=== PATIENT | male | born 1985 | race Caucasian/White ===

== ENCOUNTER 2017-01-11 10:17 | Emergency (ER) | payer MEDICARE, MEDICAID ==
--- NOTE | 2017-01-11 11:03 | UC ---
Complaint Male HPI - HPI Summary HPI Summary: 3 DAYS OF PROGRESSIVELY WORSENING LEFT TESTICULAR PAIN AND SWELLING. STATES HE FEELS AN EXTRA SWELLING IN THE LEFT SIDE OF HIS SCROTUM. HAS SOME PAIN WITH DEFECATION AND MILD DISCOMFORT WHEN URINATING. IS IN A MONOGAMOUS RELATIONSHIP. IS NOT CONCERNED ABOUT STD. PAIN RADIATES TO HIS LEFT LOWER ABDOMEN AND LOW BACK. NO FEVER. NO PENILE DISCHARGE. - History of Current Complaint Chief Complaint: UCGeneralIllness Stated Complaint: TESTICULAR PAIN Time Seen by Provider: 01/11/17 10:43 Hx Obtained From: Patient, Family/News Library Director - Onset/Duration: Gradual Onset, Lasting Days, Still Present Timing: Constant Severity Initially: Moderate Severity Currently: Moderate Pain Intensity: 7 Pain Scale Used: 0-10 Numeric Location: Testicle - LEFT Character: Sharp Aggravating Factor(s): Straining Alleviating Factor(s): Nothing Associated Signs And Symptoms: Positive: Back Pain. Negative: Fever, Hematuria , Dysuria, Constipation, Blood in Stool, Rectal Pain, Appetite, Nausea, Vomiting (# Of Episodes =), Penile Swelling, Penile Discharge - Allergies/Home Medications Allergies/Adverse Reactions: Allergies Allergy/AdvReac Type Severity Reaction Status Date / Time No Known Allergies Allergy Verified 01/11/17 10:28 Home Medications: Home Medications NK [No Home Medications Reported] 01/11/17 [History Confirmed 01/11/17] PMH/Surg Hx/FS Hx/Imm Hx Previously Healthy: Yes - Surgical History Surgical History: Yes Surgery Procedure, Year, and Place: appy - Family History Known Family History: Negative: Hypertension - Social History Alcohol Use: Occasionally Substance Use Type: Marijuana Substance Use Comment - Amount & Last Used: weekly Smoking Status (MU): Heavy Every Day Tobacco Smoker Amount Used/How Often: 1 PPD Household Exposure Type: Cigarettes Review of Systems Constitutional: Negative Respiratory: Negative Cardiovascular: Negative Gastrointestinal: Negative Genitourinary: Other - LEFT TESTICULAR PAIN, SWELLING Neurological: Headache All Other Systems Reviewed And Are Negative: Yes Physical Exam Triage Information Reviewed: Yes Appearance: Well-Appearing, No Pain Distress, Well-Nourished Vital Signs: Initial Vital Signs Temp 97.4 F 01/11/17 10:29 Pulse 61 01/11/17 10:29 Resp 18 01/11/17 10:29 BP 121/69 01/11/17 10:29 Pulse Ox 100 01/11/17 10:29 Vital Signs Reviewed: Yes Eyes: Positive: Conjunctiva Clear ENT: Positive: Hearing grossly normal Neck: Positive: Supple Respiratory: Positive: No respiratory distress, No accessory muscle use Cardiovascular: Positive: Pulses Normal Abdomen Description: Positive: Nontender, Soft Musculoskeletal: Positive: No Edema Neurological: Positive: Alert Psychological: Positive: Age Appropriate Behavior Skin: Negative: rashes UC Physical Exam Vital Signs On Initial Exam: Initial Vitals Temp Pulse Resp BP Pulse Ox 97.4 F 61 18 121/69 100 01/11/17 10:29 01/11/17 10:29 01/11/17 10:29 01/11/17 10:29 01/11/17 10:29 - Genitalia Exam Male Genitalia: Circumcised Male Genitalia Cont.: Left: Testicles Tender - LEFT TESTICLE SWOLLEN, TENDER. PALPABLE TENDER SWELLING POSTERIOR TO LEFT TESTIS. NO HERNIA PALPATED, Testicles With Swelling, Right: Testicles Descended Diagnostics - Radiology TESTICULAR US Xray Interpretation: Positive (See Comments) - 1. No evidence for presence of an intratesticular lesion, testicular torsion, or epididymoorchitis. 2. Paratesticular 2.9 x 1.5 x 2.1 cm sharply circumscribed thin-walled simple appearing cyst in the LEFT hemiscrotum without clear origin from the epididymis. This may represent a scrotal tunica vaginalis or albuginea cyst. Urologic referral suggested. Radiology Interpretation Completed By: Radiologist Complaint Male Course/Dx - Differential Dx/Diagnosis Provider Diagnoses: CYST LEFT HEMISCROTUM - Physician Notifications Discussed Patient Care With: Sea Hsu - ADVISED TO SEND DIRECTLY TO OFFICE Time Discussed With Above Provider: 12:15 Instructed by Provider To: Send To Office Now Discharge - Discharge Plan Condition: Stable Disposition: HOME Patient Education Materials: Testicle Pain (ED) Referrals: Sea Hsu MD [Medical Doctor] - (GO DIRECTLY TO THE UROLOGY OFFICE FROM HERE FOR FURTHER EVALUATION) Additional Instructions: YOU HAVE A CYST IN THE LEFT SCROTUM SEEN ON ULTRASOUND TODAY. GO DIRECTLY TO DR. HSU'S OFFICE (UROLOGY) FOR FURTHER EVALUATION. THEY ARE EXPECTING YOU. YOUR URINE DIP WAS UNREMARKABLE TODAY. URINE SENT FOR TESTING FOR GONORRHEA AND CHLAMYDIA.
--- NOTE | 2017-01-11 11:53 | RAD ---
Indication: LEFT scrotal pain, redness, and swelling since January 08. Comparison: No relevant prior exams available on the [facility] PACS for comparison. Technique: Scrotal ultrasound. Report: 5.1 x 2.4 x 3.3 cm normal echotexture RIGHT testicle with normal range vascularity. Unremarkable 1.2 x 1.2 cm RIGHT epididymis head with normal range vascularity. Physiologic trace RIGHT scrotal fluid. Negative for varicocele. 5.3 x 2.7 x 3.8 cm normal echotexture LEFT testicle is traced normal vascularity symmetric with the RIGHT testicle. Unremarkable 0.9 x 1.5 cm LEFT epididymis head with normal range vascularity. Extratesticular 2.9 x 1.5 x 2.1 cm sharply circumscribed thin-walled simple appearing cyst in the LEFT hemiscrotum without clear origin from the epididymis. Physiologic trace LEFT scrotal fluid. Negative for varicocele. IMPRESSION: 1. No evidence for presence of an intratesticular lesion, testicular torsion, or epididymoorchitis. 2. Paratesticular 2.9 x 1.5 x 2.1 cm sharply circumscribed thin-walled simple appearing cyst in the LEFT hemiscrotum without clear origin from the epididymis. This may represent a scrotal tunica vaginalis or albuginea cyst. Urologic referral suggested.
[2017-01-11] MEDS ORDERED: Ibuprofen TAB* 600 MG PO ONE (12:18)
[2017-01-11 12:28] VITALS: BP 141/82
== END 2017-01-11 12:26 | disposition home or self-care (01) ==
LOC: UCEAST 10:17
DX: N50.89 Other specified disorders of the male genital organs (principal); N50.812 Left testicular pain; F12.90 Cannabis use, unspecified, uncomplicated; F17.210 Nicotine dependence, cigarettes, uncomplicated
CPT/HCPCS: 76870; 81003; 87491; 87591; 99212; A9270-GY; G0463

== ENCOUNTER 2017-06-04 19:38 | Emergency (ER) | payer MEDICARE, MEDICAID ==
[2017-06-04] MEDS ORDERED: Ibuprofen TAB* 400 MG PO ONE (21:02)
[2017-06-04] MEDS ORDERED: Ibuprofen TAB* 400 MG ONE (21:09)
--- NOTE | 2017-06-05 00:19 | ED ---
Skin Complaint - HPI Summary HPI Summary: [id number] patient here with left thumb laceration while washing dishes tonight. He cut his hand on a drinking glass all trying to wash it. Bleeding was eventually controlled with pressure however he reports it looks with a deep wound. Does not feel any remnants may be left in the wound that was occluded as it was a clean break of the glass and he has no pain within the finger. Sensation and movement are intact although he does report pain with moving his left thumb. Immunizations are up-to-date. - History of Current Complaint Chief Complaint: EDExtremityUpper Time Seen by Provider: 06/04/17 19:53 Stated Complaint: LEFT HAND LAC Hx Obtained From: Patient Pain Intensity: 7 - Allergy/Home Medications Allergies/Adverse Reactions: Allergies Allergy/AdvReac Type Severity Reaction Status Date / Time No Known Allergies Allergy Verified 06/04/17 19:40 PMH/Surg Hx/FS Hx/Imm Hx Previously Healthy: Yes Endocrine/Hematology History: Denies: Hx Anticoagulant Therapy, Hx Blood Disorders, Hx Unexplained Bleeding Sensory History: Denies: Hx Contacts or Glasses Opthamlomology History: Denies: Hx Contacts or Glasses - Surgical History Surgery Procedure, Year, and Place: appy - Immunization History Immunizations Up to Date: Yes Infectious Disease History: No Infectious Disease History: Denies: Hx of Known/Suspected MRSA, History Other Infectious Disease, Traveled Outside the [place] in Last 30 Days - Family History Known Family History: Negative: Hypertension - Social History 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 Negative: Arthralgia, Decreased ROM, Edema Skin: Other - lac Neurological: Negative Psychological: Normal All Other Systems Reviewed And Are Negative: Yes Physical Exam Triage Information Reviewed: Yes Vital Signs On Initial Exam: Initial Vitals Temp Pulse Resp BP Pulse Ox 97.1 F 66 16 139/88 99 06/04/17 19:40 06/04/17 19:40 06/04/17 19:40 06/04/17 19:40 06/04/17 19:40 Vital Signs Reviewed: Yes Appearance: Positive: Well-Appearing, No Pain Distress, Well-Nourished Skin: Positive: Warm, Skin Color Reflects Adequate Perfusion - linear laceration over lateral aspect of Lt thumb - bleeding intermittently w/o pressure Head/Face: Positive: Normal Head/Face Inspection Eyes: Positive: Normal, EOMI ENT: Positive: Hearing grossly normal Respiratory/Lung Sounds: Positive: Breath Sounds Present Cardiovascular: Positive: Pulses are Symmetrical in both Upper and Lower Extremities Musculoskeletal: Positive: Normal, Strength/ROM Intact - FROM thumb active and resisted; strength 5/5 in all directions Neurological: Positive: Normal, Sensory/Motor Intact, Alert, Oriented to Person Place, Time, CN Intact II-III Psychiatric: Positive: Normal Procedures - Laceration/Wound Repair 1 Location: upper extremity - Lt thumb Description: Linear Anesthesia: Local, 1.0%, Lido Length, Depth and Shape: 2.5cm x 4mm - tendon observed and intact - no vessels, nerves observed Betadine Prep?: Yes Irrigated w/ Saline (ccs): 250 - hibaclens and water solution Laceration/Wound Explored: clean Closure: Single Layer Suture Type: Nylon - 5-0 Number of Sutures: 8 Layer Closure?: No Sterile Dressing Applied?: No - triple anbx ointment + sterile gauze + TIM wrap - hemodynamically stable Diagnostics - Vital Signs Vital Signs Temp Pulse Resp BP Pulse Ox 06/04/17 19:40 97.1 F 66 16 139/88 99 - Laboratory Lab Statement: Any lab studies that have been ordered have been reviewed, and results considered in the medical decision making process. Course/Dx - Diagnoses Provider Diagnoses: Laceration of left thumb Discharge - Discharge Plan Condition: Stable Disposition: HOME Patient Education Materials: Finger Laceration (ED), Care For Your Stitches (ED ) Additional Instructions: Keep dressing clean, dry and in place for 48 hours. After this time, you may remove dressing and gently wash the wound with soap and water, pat dry with clean cloth, and reapply triple antibiotic ointment plus clean gauze dressing. Brace thumb so you cannot bend it in an effort to reduce risk of tearing sutures loose. Follow-up with PCP or return to ED in 10-14 days for wound check and suture removal. For pain/swelling, you may rest, ice, elevate and take ibuprofen with food. *If you develop redness, swelling, streaking, purulent drainage, fever, chills, return to the ED.
[2017-06-05 00:41] VITALS: BP 131/72
== END 2017-06-05 00:39 | disposition home or self-care (01) ==
LOC: ED 19:38
DX: S61.012A Laceration without foreign body of left thumb without damage to nail, initial encounter (principal); W25.XXXA Contact with sharp glass, initial encounter; Y93.G1 Activity, food preparation and clean up; Y92.9 Unspecified place or not applicable; F17.210 Nicotine dependence, cigarettes, uncomplicated
CPT/HCPCS: 12001; 99281; A9270-GY

== ENCOUNTER 2018-01-31 12:21 | Emergency (ER) | payer MEDICARE, MEDICAID ==
[2018-01-31] MEDS ORDERED: Nicotine Inhaler* 10 MG AMP INH PRN (17:48)
[2018-01-31] MEDS ORDERED: chlordiazePOXIDE CAP* 25 MG PO ONE (17:48)
[2018-01-31 18:03] LABS: ABS Basophils 0.1 10^3/ul (0-0.2); ABS Eosinophils 0.3 10^3/ul (0-0.6); ABS Lymphocytes 2.8 10^3/ul (1.0-4.8); ABS Monocytes 0.8 10^3/ul (0-0.8); ABS Nucleated RBC 0 10^3/ul; Eosinophil % 2.8 % (0-6); Hematocrit 46 % (42-52); Hemoglobin 15.9 g/dl (14.0-18.0); Lymphocyte % 25.4 % (25-47); Mean Corpuscular HGB Conc 34 g/dl (31-36); Mean Corpuscular Hemoglobin 30 pg (27-31); Mean Corpuscular Volume 88 fL (80-94); Mean Platelet Volume 7.8 fL (7.4-10.4); Nucleated Red Blood Cells % 0.1; Platelet Count 226 10^3/ul (150-450); Red Blood Count 5.28 10^6/ul (4.00-5.40); Red Cell Distribution Width 16 % (10.5-15)
[2018-01-31] MEDS ORDERED: Nicotine GUM* 2 MG PO PRN (18:08)
[2018-01-31 18:20] LABS: EGFR Non-African American 110.3 (>60)
--- NOTE | 2018-01-31 18:52 | ED ---
Substance Abuse/Use - HPI Summary HPI Summary: Patient is a 32 y/o M presenting to ED for alcohol detox assistance. Patient states he has been drinking. He states that his last alcoholic drink was yesterday, patient states that he was experiencing "shakes and sweats" and he is hoping to get medication to help with the withdrawal. He denies any other drug usage except for occasional marijuana. He also requests MHE, denies SI, HI. Patient reports FMHx of schizophrenia, bipolar disorder, depression. On triage, pain is denied, nothing is noted to aggravate/alleviate Sx. Home medications and allergies are reviewed. - History Of Current Complaint Chief Complaint: EDDetoxRequest Stated Complaint: MHE/DETOX Time Seen by Provider: 01/31/18 17:21 Hx Obtained From: Patient Ingestion History: Type/Name Of Drug - alcohol Overdose Characteristics: Oral Timing Of Abuse: Daily Severity Currently: None - pain denied Aggravating Factor(s): Nothing Alleviating Factor(s): Nothing Associated Signs And Symptoms: Other: - sweats, shakes Related Hx: Drug/Alcohol Last Used @ - yesterday - Allergies/Home Medications Allergies/Adverse Reactions: Allergies Allergy/AdvReac Type Severity Reaction Status Date / Time No Known Allergies Allergy Verified 01/31/18 12:38 Home Medications: Home Medications Albuterol HFA INHALER* [Ventolin HFA Inhaler*] 2 puff INH QID PRN 01/31/18 [ History Confirmed 01/31/18] Sertraline* [Zoloft*] 150 mg PO DAILY 01/31/18 [History Confirmed 01/31/18] buPROPion SR TAB* [Wellbutrin SR TAB*] 100 mg PO DAILY 01/31/18 [History Confirmed 01/31/18] PMH/Surg Hx/FS Hx/Imm Hx Endocrine/Hematology History: Denies: Hx Anticoagulant Therapy, Hx Blood Disorders, Hx Unexplained Bleeding Sensory History: Denies: Hx Contacts or Glasses Opthamlomology History: Denies: Hx Contacts or Glasses - Surgical History Surgery Procedure, Year, and Place: appy Infectious Disease History: No Infectious Disease History: Denies: Hx of Known/Suspected MRSA, History Other Infectious Disease, Traveled Outside the [place] in Last 30 Days - Family History Known Family History: Positive: Other - bipolar disorder, schizophrenia, depression Negative: Hypertension - Social History Alcohol Use: Daily Alcohol Amount: 15-20beers/day Substance Use Type: Reports: Marijuana Substance Use Comment - Amount & Last Used: weekly Hx Tobacco Use: Yes Smoking Status (MU): Heavy Every Day Tobacco Smoker Amount Used/How Often: 1 PPD - rolls his own Review of Systems Positive: Skin Diaphoresis, Other - shaking Positive: Other - alcoholism, no SI, no HI All Other Systems Reviewed And Are Negative: Yes Physical Exam - Summary Physical Exam Summary: GENERAL: Patient is a well-developed and nourished male who is lying comfortable in the stretcher. Patient is not in any acute respiratory distress. HEAD AND FACE: Normocephalic EYES: PERRLA, EOMI x 2. EARS: Hearing grossly intact. MOUTH: Oropharynx within normal limits. NECK: Supple, trachea is midline, no adenopathy, no JVD, no carotid bruit. CHEST: Symmetric, no tenderness at palpation LUNGS: Clear to auscultation bilaterally. No wheezing or crackles. CVS: Regular rate and rhythm, S1 and S2 present, no murmurs or gallops appreciated. ABDOMEN: Soft, non-tender. Bowel sounds are normal. No abdominal abnormal pulsations. EXTREMITIES: Full ROM in all major joints, no edema, no cyanosis or clubbing. NEURO: Alert and oriented x 3. No acute neurological deficits. Speech is normal and follows commands. SKIN: Dry and warm Triage Information Reviewed: Yes Vital Signs On Initial Exam: Initial Vitals Temp Pulse Resp BP Pulse Ox 98.1 F 75 18 145/89 98 01/31/18 12:34 01/31/18 12:34 01/31/18 12:34 01/31/18 12:34 01/31/18 12:34 Vital Signs Reviewed: Yes Diagnostics - Vital Signs Vital Signs Temp Pulse Resp BP Pulse Ox 01/31/18 18:21 18 01/31/18 14:15 98.4 F 78 14 151/82 100 01/31/18 12:34 98.1 F 75 18 145/89 98 - Laboratory Lab Results: Lab Results 01/31/18 01/31/18 Range/Units 17:53 17:53 WBC 11.0 H (3.5-10.8) 10^3/ul RBC 5.28 (4.00-5.40) 10^6/ul Hgb 15.9 (14.0-18.0) g/dl Hct 46 (42-52) % MCV 88 (80-94) fL MCH 30 (27-31) pg MCHC 34 (31-36) g/dl RDW 16 H (10.5-15) % Plt Count 226 (150-450) 10^3/ul MPV 7.8 (7.4-10.4) fL Neut % (Auto) 63.9 (38-83) % Lymph % (Auto) 25.4 (25-47) % [place] % (Auto) 7.2 H (0-7) % Eos % (Auto) 2.8 (0-6) % Baso % (Auto) 0.7 (0-2) % Absolute Neuts (auto) 7.0 (1.5-7.7) 10^3/ul Absolute Lymphs (auto) 2.8 (1.0-4.8) 10^3/ul Absolute Monos (auto) 0.8 (0-0.8) 10^3/ul Absolute Eos (auto) 0.3 (0-0.6) 10^3/ul Absolute Basos (auto) 0.1 (0-0.2) 10^3/ul Absolute Nucleated RBC 0 10^3/ul Nucleated RBC % 0.1 Sodium 139 (135-145) mmol/L Potassium 4.2 (3.5-5.0) mmol/L Chloride 104 (101-111) mmol/L Carbon Dioxide 26 (22-32) mmol/L Anion Gap 9 (2-11) mmol/L BUN 13 (6-24) mg/dL Creatinine 0.82 (0.67-1.17) mg/dL Est GFR ( Amer) 133.5 (>60) Est GFR (Non-Af Amer) 110.3 (>60) BUN/Creatinine Ratio 15.9 (8-20) Glucose 101 H (70-100) mg/dL Calcium 9.8 (8.6-10.3) mg/dL Total Bilirubin 0.50 (0.2-1.0) mg/dL AST 19 (13-39) U/L ALT 16 (7-52) U/L Alkaline Phosphatase 79 (34-104) U/L Total Protein 7.5 (6.4-8.9) g/dL Albumin 4.6 (3.2-5.2) g/dL Globulin 2.9 (2-4) g/dL Albumin/Globulin Ratio 1.6 (1-3) TSH Pending Salicylates Pending Acetaminophen Pending Serum Alcohol Pending Result Diagrams: 01/31/18 17:53 01/31/18 17:53 Lab Statement: Any lab studies that have been ordered have been reviewed, and results considered in the medical decision making process. Re-Evaluation - Re-Evaluation First Eval Re-Evaluation Time: 18:10 Comment: Patient was medically cleared for MHE. Course/Dx - Course Course Of Treatment: Patient is a 32 y/o M presenting to ED for alcohol detox assistance. He states that his last alcoholic drink was yesterday, patient states that he was experiencing "shakes and sweats" and he is hoping to get medication to help with the withdrawal. He denies any other drug usage except for occasional marijuana. He also requests MHE, denies SI, HI. Physical exam is unremarkable. Labs showed glucose 101, WBC 11. During ED course, patient received Librium cap 25 mg, nicotine gum 2 mg, and nicotine inhaler. Patient was medically cleared for MHE. Patient is signed out to Dr. Luis at shift change pending disposition of patient. Dx of alcohol abuse. - Diagnoses Provider Diagnoses: Alcohol abuse Discharge - Sign-Out/Discharge Documenting (check all that apply): Sign-Out Patient Signing out patient TO: Vivian Luis Receiving patient FROM: Torito Clemons - Discharge Plan Referrals: Jeff Canales MD [Primary Care Provider] - - Attestation Statements Document Initiated by Scribe: Yes Documenting Scribe: Gomez Parsons Provider For Whom Scribe is Documenting (Include Credential): Torito Clemons MD Scribe Attestation: Gomez Au , scribed for Torito Clemons MD on 01/31/18 at 1908.
[2018-01-31 19:11] LABS: Urine Appearance Turbid; Urine Blood Negative (Negative); Urine Color Yellow; Urine Ketones Negative (Negative); Urine Protein Negative (Negative); Urine Specific Gravity 1.013 (1.010-1.030); Urine Urobilinogen Negative (Negative)
--- NOTE | 2018-01-31 19:43 | ED ---
Progress - Progress Note Progress Note: Patient was signed out from Dr. Clemons upon shift change pending MHE and disposition. Per TARA and Dr. Mcclain, patient presented to [facility] with a request for detox from ETOH. Per MHShelly, patient was making suicidal statements; however, he is not currently presenting as suicidal. Dr. Mcclain recommends patient be discharged with follow up from the crisis center for detox. - Consult/PCP Time Called: 18:00 Re-Evaluation - Re-Evaluation First Eval Re-Evaluation Time: 18:10 Comment: Patient was medically cleared for MHE. Course/Dx - Course Course Of Treatment: Patient was signed out from Dr. Clemons upon shift change pending MHE and disposition. Per TARA and Dr. Mcclain, patient presented to [facility] with a request for detox from ETOH. Per MHE, patient was making suicidal statements; however, he is not currently presenting as suicidal. Dr. Mcclain recommends patient be discharged with follow up from the crisis center for detox. Patient is agreeable with this plan. - Diagnoses Provider Diagnoses: Alcohol abuse Discharge - Sign-Out/Discharge Documenting (check all that apply): Patient Departure - Discharge home, Receiving Sign-Out Receiving patient FROM: Torito Clemons - Upon shift change pending MHE and disposition - Discharge Plan Condition: Stable Disposition: HOME Referrals: Jeff Canales MD [Primary Care Provider] - - Attestation Statements Document Initiated by Scribe: Yes Documenting Scribe: Shalini Veloz Provider For Whom Scribe is Documenting (Include Credential): Dr. Vivian Luis MD Scribe Attestation: IShalini, scribed for Dr. Vivian Luis MD on 01/31/18 at 1944.
[2018-01-31 20:31] VITALS: BP 145/92
== END 2018-01-31 20:28 | disposition home or self-care (01) ==
LOC: ED 12:21
DX: F10.10 Alcohol abuse, uncomplicated (principal); F17.200 Nicotine dependence, unspecified, uncomplicated
CPT/HCPCS: 36415; 80053; 80307; 80320; 80329; 81003; 84443; 85025; 99284; A9270-GY; G0480

== ENCOUNTER 2018-02-14 17:49 | Inpatient (IN) | payer MEDICARE, MEDICAID ==
--- NOTE | 2018-02-14 18:10 | ED ---
Substance Abuse/Use - HPI Summary HPI Summary: Patient is a 32 y/0 M brought in as 941 for overdose. He took a full bottle of Sertaline 100 mg tabs (QTY 45) and Buproprion SR 100mg tabs (QTY 30). Patient reports that he drank milk after taking medications and vomited x3, claims that all of the tablets came up. In the room, he denies SI or depression. He states that he took the pills because he was "upset, given what I have been through". He denies PMHx of depression, schizophrenia, and bipolar disorder. FMHx of bipolar disorder is noted. He denies alcohol and drug usage today. No other medical problems reported. When informed of need of bloodwork, patient became hostile, refusing blood work. Patient's 941 status was explained, patient still refuses, and yelling threats at MD provider. He states, "I'm not fucking suicidal." reports that patient was served with an order of protection at 1600 today against his 3 year old and his partner. 20 minutes later, partner called who states that patient had said he wanted to and took his pills. On triage, pain is denied, nothing is noted to aggravate/alleviate Sx. Home medications and allergies are reviewed. - History Of Current Complaint Stated Complaint: OVERDOSE Time Seen by Provider: 02/14/18 17:58 Hx Obtained From: Patient, Other: - POLICE SHERRIF Onset/Duration of Drug/ETOH Abuse: Hours - onset around 1620 Ingestion History: Type/Name Of Drug - Sertaline 100 mg tabs (QTY 45) and Buproprion SR 100mg tabs (QTY 30) Overdose Characteristics: Oral Severity Currently: None Character: Angry Aggravating Factor(s): Nothing Alleviating Factor(s): Nothing Associated Signs And Symptoms: Hostile - Allergies/Home Medications Allergies/Adverse Reactions: Allergies Allergy/AdvReac Type Severity Reaction Status Date / Time No Known Allergies Allergy Verified 02/14/18 19:47 PMH/Surg Hx/FS Hx/Imm Hx Endocrine/Hematology History: Denies: Hx Anticoagulant Therapy, Hx Blood Disorders, Hx Unexplained Bleeding Sensory History: Denies: Hx Contacts or Glasses Opthamlomology History: Denies: Hx Contacts or Glasses Psychiatric History: Denies: Hx Eating Disorder, Hx Depression, Hx Schizophrenia, Hx Bipolar Disorder, Hx of Violent Episodes Against Others - Surgical History Surgery Procedure, Year, and Place: appy Infectious Disease History: Denies: Hx of Known/Suspected MRSA, History Other Infectious Disease - Family History Known Family History: Positive: Other - bipolar disorder, schizophrenia, depression Negative: Hypertension - Social History Alcohol Use: Daily Alcohol Amount: 15-20beers/day Substance Use Type: Reports: Marijuana Substance Use Comment - Amount & Last Used: weekly Hx Tobacco Use: Yes Smoking Status (MU): Heavy Every Day Tobacco Smoker Amount Used/How Often: 1 PPD - rolls his own Review of Systems Negative: Fever - on vitals, temp is 97.9 F Positive: Other - patient denies SI All Other Systems Reviewed And Are Negative: Yes Physical Exam - Summary Physical Exam Summary: Appearance: Well appearing, no pain distress Skin: warm, dry, reflects adequate perfusion Head/face: normal Eyes: EOMI, MORIAH ENT: normal Neck: supple, non-tender Respiratory: CTA, breath sounds present Cardiovascular: RRR, pulses symmetrical Abdomen: non-tender, soft Bowel: present Musculoskeletal: normal, strength/ROM intact Neuro: normal, sensory motor intact, A&Ox3 Psych: depressed affect Triage Information Reviewed: Yes Vital Signs On Initial Exam: Initial Vitals Temp Pulse Resp BP Pulse Ox 97.9 F 78 16 188/124 96 02/14/18 18:00 02/14/18 18:00 02/14/18 18:00 02/14/18 18:00 02/14/18 18:00 Vital Signs Reviewed: Yes Diagnostics - Laboratory Result Diagrams: 02/15/18 05:22 02/15/18 05:22 Lab Statement: Any lab studies that have been ordered have been reviewed, and results considered in the medical decision making process. - EKG 1920 Cardiac Rate: NL - RATE OF 75 BPM EKG Rhythm: Sinus Rhythm Summary of EKG Findings: EKG showed NSR with rate of 75 BPM, no acute changes. Re-Evaluation - Re-Evaluation First Eval Re-Evaluation Time: 18:15 Change: Unchanged Comment: Poison control was contacted, Angela Dowd, who recommends EKG and that QRS/QTC levels > 100 and 500 respectively need to be reported. Bloodwork, charcoal, and observation is also recommended Second Eval Re-Evaluation Time: 18:40 Change: Improved Comment: 1840 - Patient became more cooperative, took Carcoal 80 mg PO ED ONCE ONE, and fluids. Bloodwork, toxicology were obtained. Third Eval Re-Evaluation Time: 18:50 Change: Unchanged Comment: 1850 - Poison control MD states that Benzos should be used to effect, monitor CPK levels and watch for hypothermia, will reach out to specialist for potential full body irrigation Course/Dx - Course Course Of Treatment: Patient is a 32 y/0 M brought in as 941 for overdose. He took a full bottle of Sertaline 100 mg tabs (QTY 45) and Buproprion SR 100mg tabs (QTY 30). Patient reports that he drank milk after taking medications and vomited x3, claims that all of the tablets came up. In the room, he denies SI or depression. He states that he took the pills because he was "upset, given what I have been through". He denies PMHx of depression, schizophrenia, and bipolar disorder. FMHx of bipolar disorder is noted. He denies alcohol and drug usage today. No other medical problems reported. When informed of need of bloodwork, patient became hostile, refusing blood work. Patient's 941 status was explained, patient still refuses, and yelling threats at MD provider. He states, "I'm not fucking suicidal." reports that patient was served with an order of protection at 1600 today against his 3 year old and his partner. 20 minutes later, partner called who states that patient had said he wanted to and took his pills. On physical exam, patient is noted to have depressed affect. Poison control was contacted, Angela Dowd, who recommends EKG and that QRS/QTC levels > 100 and 500 respectively need to be reported. Bloodwork, charcoal, and observation is also recommended. 1840 - Patient became more cooperative, took Carcoal 80 mg PO ED ONCE ONE, and fluids. Bloodwork, toxicology were obtained. 1850 - Poison control MD states that Benzos should be used to effect, monitor CPK levels and watch for hypothermia, will reach out to specialist for potential full body irrigation. EKG showed NSR with rate of 75 BPM, no acute changes. Patient's case was discussed with Dr. Calvillo, Dr. Calvillo accepts patient for admission. - Diagnoses Differential Diagnosis/HQI/PQRI: Positive: Anxiety, Depression, Drug Abuse, Suicidal Risk Provider Diagnoses: Drug overdose, intentional, Suicidal ideation, Depression - Physician Notifications Discussed Care Of Patient With: Jing Calvillo Time Discussed With Above Provider: 19:37 Instructed by Provider To: Other - 1850 - Poison control MD states that Benzos should be used to effect, monitor CPK levels and watch for hypothermia, will reach out to specialist for potential full body irrigation. Patient's case was discussed with Dr. Calvillo at 1937, Dr. Calvillo accepts for admission. Discharge - Sign-Out/Discharge Documenting (check all that apply): Patient Departure - admit - Discharge Plan Condition: Good Disposition: ADMITTED TO [facility] - Billing Disposition and Condition Condition: GOOD Disposition: Admitted to [facility] - Attestation Statements Document Initiated by Kalyaniibe: Yes Documenting Scribe: CHITRA NEWMAN Provider For Whom Kalyaniibe is Documenting (Include Credential): SAMI CATHERINE MD Scribe Attestation: ICHITRA , scribed for SAMI CATHERINE MD on 02/15/18 at 1044. Scribe Documentation Reviewed: Yes Provider Attestation: The documentation as recorded by the CHITRA regalado accurately reflects the service I personally performed and the decisions made by me, SAMI CATHERINE MD
[2018-02-14] MEDS ORDERED: Haloperidol INJ IV/IM* 5 MG/ML AMP ONE (18:26)
[2018-02-14] MEDS ORDERED: LORazepam INJ* 2 MG/ML 1 ML VIAL ONE (18:26)
[2018-02-14] MEDS ORDERED: Charcoal ACTIVATED* 25 GM/120 ML BTL PO ONE (18:39)
[2018-02-14] MEDS ORDERED: Charcoal ACTIVATED* 25 GM/120 ML BTL ONE (18:47)
[2018-02-14 18:51] LABS: ABS Basophils 0 10^3/ul (0-0.2); ABS Eosinophils 0.2 10^3/ul (0-0.6); ABS Lymphocytes 2.9 10^3/ul (1.0-4.8); ABS Monocytes 0.8 10^3/ul (0-0.8); ABS Neutrophils 9.7 10^3/ul (1.5-7.7); ABS Nucleated RBC 0 10^3/ul; Eosinophil % 1.3 % (0-6); Hematocrit 51 % (42-52); Hemoglobin 16.9 g/dl (14.0-18.0); Lymphocyte % 21.6 % (25-47); Mean Corpuscular HGB Conc 33 g/dl (31-36); Mean Corpuscular Hemoglobin 30 pg (27-31); Mean Corpuscular Volume 89 fL (80-94); Mean Platelet Volume 7.7 fL (7.4-10.4); Nucleated Red Blood Cells % 0.2; Platelet Count 258 10^3/ul (150-450); Red Blood Count 5.73 10^6/ul (4.00-5.40); Red Cell Distribution Width 15 % (10.5-15); White Blood Count 13.7 10^3/ul (3.5-10.8)
[2018-02-14 19:05] LABS: EGFR Non-African American 99.1 (>60)
[2018-02-14] MEDS ORDERED: Albuterol HFA INHALER* 8 gm MDI INH PRN (19:53)
[2018-02-14] MEDS: NS 0.9% 1000 ML* 1,000 ML IV SCH (20:09)
--- NOTE | 2018-02-14 20:20 | ADMNOTE ---
Subjective Date of Service: 02/14/18 Interval History: code status full this is admission h/p pt is a very poor historian hpi this is a 32 yr old wm with hx of etoh dep,? depression came in after he overdose 15 tabs of wellbutrim sr 150 + 15 tabs of zoloft 100 mg. he got a court order of protection filed by his ex ie he could be nearby his ex and his daughter this afternoon at 4 pm. pt went home and voiced suicidation ideation to his Mom and his witnessed he took unknown tabs of wellbutrim/zoloft from med bottle. both was prescribed on 01/14 30 tabs ---> His mom was not sure how many tabs he took ---> called ems ---> he also voiced suicidal ideation to ems. after arrival to er, pt drank only 25 gram of charcoal and refused to take further because charcoal has made him feel worse. er spoke with marc bains ob for 24 hours for possible prolonged qtc. initial ekg ns with qtc 438 pt denied any depression and denied this is a suicidal ideation. says he has been given those two meds by his pcp for treatment of his etoh problem. ( he was not sure pcp name but clinic is located on [facility].---> PT IS A VERY POOR HISTORIAN and cursed this residential mortgage underwriter throughout the interview. he only admits that his last etoh consumption was two days ago REFUSED TO REVEAL ANY INFO REG HIS ETOH PROBLEM he currently has no c/o phx etoh dep prob depression possible personality disorder pshx s/p appy social hx never cig refused to d/w anything reg his etoh hx denied any ivda or prescription misuse. 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 denied any htn/dm/cva/cad Review of Systems - Measurements Intake and Output: Intake and Output Last 24 Hours 02/12/18 02/13/18 02/14/18 02/15/18 06:59 06:59 06:59 06:59 Weight 180 lb - Review of Systems General Comments: pertinent as per hpi Objective Active Medications: Albuterol (Ventolin Hfa Inhaler*) 2 puff INH QID PRN PRN Reason: SHORTNESS OF BREATH Sodium Chloride (Ns 0.9% 1000 Ml*) 1,000 mls @ 125 mls/hr IV PER RATE BRENNAN Last Admin: 02/14/18 20:09 Dose: 125 mls/hr Nicotine (Nicotine Inhaler*) 10 mg INH Q2H PRN PRN Reason: CRAVING Vital Signs - 8 hr 02/14/18 02/14/18 02/14/18 18:00 18:44 18:45 Temperature 97.9 F Pulse Rate 78 75 71 Respiratory 16 19 14 Rate Blood Pressure 188/124 133/83 (mmHg) O2 Sat by Pulse 96 99 98 Oximetry 02/14/18 02/14/18 02/14/18 18:58 19:00 19:14 Temperature 98.7 F Pulse Rate 82 71 Respiratory 21 20 Rate Blood Pressure 144/88 (mmHg) O2 Sat by Pulse 97 96 Oximetry 02/14/18 02/14/18 19:44 20:00 Temperature Pulse Rate 78 89 Respiratory 19 22 Rate Blood Pressure 145/100 (mmHg) O2 Sat by Pulse 96 96 Oximetry Oxygen Devices in Use Now: None Appearance: nad Eyes: No Scleral Icterus, PERRLA Ears/Nose/Mouth/Throat: NL Teeth, Lips, Gums, Clear Oropharnyx, Mucous Membranes Moist Neck: NL Appearance and Movements; NL JVP, Trachea Midline, No Thyroid Enlargement, Masses Respiratory: Symmetrical Chest Expansion and Respiratory Effort, Clear to Auscultation Cardiovascular: NL Sounds; No Murmurs; No JVD, RRR Abdominal: NL Sounds; No Tenderness; No Distention, No Hepatosplenomegaly Extremities: No Edema, - - able to raise ue and le against gravity Skin: No Rash or Ulcers Neurological: Alert and Oriented x 3, NL Sensation, NL Muscle Strength and Tone Result Diagrams: 02/14/18 18:41 02/14/18 18:41 EKG Data: ekg ns no acute st t changes qtc 438 Assess/Plan/Problems-Billing Assessment: this is a 32 yr old wm was brought in via ems after he voiced suicidal ideation and took unknown quantity of wellbutrim/zoloft in front of his mom, after the court order of protection against exwife and daughter. pt also voiced sucidal ideation to ems but denined any suicidal ideation/depression when seen byt this residential mortgage underwriter - Patient Problems (1) Overdose Current Visit: Yes Status: Acute Code(s): T50.901A - POISONING BY UNSP DRUG/ MEDS/BIOL SUBST, ACCIDENTAL, INIT SNOMED Code(s): 94502393 Comment: tele for 24 hrs to watch qtc ekg repeat ordered for am tylenol/motrin level are low normal urine toxin ordered (2) Depression Current Visit: Yes Status: Acute Code(s): F32.9 - MAJOR DEPRESSIVE DISORDER , SINGLE EPISODE, UNSPECIFIED SNOMED Code(s): 78640250 Comment: 1:1 for now psy will see him in am (3) EtOH dependence Current Visit: Yes Status: Acute Code(s): F10.20 - ALCOHOL DEPENDENCE, UNCOMPLICATED SNOMED Code(s): 73942767 Comment: last use of etoh was 2 days ago seizure precaution wam protocol (4) Leukocytosis Current Visit: Yes Status: Acute Code(s): D72.829 - ELEVATED WHITE BLOOD CELL COUNT, UNSPECIFIED SNOMED Code(s): 487130925 Comment: etiology unclear and does not have fever lung sounds clear abd soft no skin infection ua requested no abx given yet (5) DVT prophylaxis Current Visit: Yes Status: Acute Code(s): GBE7377 - SNOMED Code(s): 478517269 Comment: lovenox 40 mg daily
[2018-02-14] MEDS ORDERED: Mouth Piece, Nicotine* 1 EACH CARTRIDGE ONE (23:00)
[2018-02-14] MEDS: Nicotine Inhaler* 10 MG AMP INH PRN (23:04)
[2018-02-14] MEDS: LORazepam IM 0-6 mg for WAM protocol IV PUSH SCH (23:18)
[2018-02-15] MEDS: LORazepam IM 0-6 mg for WAM protocol IV PUSH SCH ×5 (01:21→10:13)
[2018-02-15] MEDS ORDERED: LORazepam INJ* 2 MG/ML 1 ML VIAL IV PUSH ONE (02:00)
[2018-02-15] MEDS ORDERED: hydrALAZINE IV* 20 MG/ML VIAL IV SLOW PU ONE (03:00)
[2018-02-15] MEDS: NS 0.9% 1000 ML* 1,000 ML IV SCH ×3 (04:25→21:27)
[2018-02-15 05:45] LABS: ABS Basophils 0 10^3/ul (0-0.2); ABS Eosinophils 0.2 10^3/ul (0-0.6); ABS Lymphocytes 2.6 10^3/ul (1.0-4.8); ABS Monocytes 0.8 10^3/ul (0-0.8); ABS Neutrophils 5.3 10^3/ul (1.5-7.7); ABS Nucleated RBC 0 10^3/ul; Eosinophil % 2.1 % (0-6); Hematocrit 43 % (42-52); Hemoglobin 14.9 g/dl (14.0-18.0); Lymphocyte % 29.5 % (25-47); Mean Corpuscular HGB Conc 35 g/dl (31-36); Mean Corpuscular Hemoglobin 30 pg (27-31); Mean Corpuscular Volume 87 fL (80-94); Mean Platelet Volume 7.3 fL (7.4-10.4); Nucleated Red Blood Cells % 0.1; Platelet Count 201 10^3/ul (150-450); Red Blood Count 4.91 10^6/ul (4.00-5.40); Red Cell Distribution Width 15 % (10.5-15)
[2018-02-15 06:04] LABS: EGFR Non-African American 88.8 (>60)
[2018-02-15] MEDS: Multivitamins/Minerals TAB PO SCH (10:15)
[2018-02-15] MEDS: Thiamine TAB* 100 MG TAB PO SCH (10:15)
[2018-02-15] MEDS: Folic Acid TAB* 1 MG PO SCH (10:15)
--- NOTE | 2018-02-15 16:09 | PN ---
Subjective Date of Service: 02/15/18 Interval History: Mr. Hendrix was not awake during my exam. Per nursing staff, he has been drowsy most of the day. He has a frequent lower extremity tremor. He will wake up for about 15 seconds to answer questions then fall back asleep. He is scoring on WA protocol. The nurse spoke with his mom and she is concerned about him returning to her house as she is scared of him. Family History: Unchanged from Admission Social History: Unchanged from Admission Past Medical History: Unchanged from Admission Objective Active Medications: Albuterol (Ventolin Hfa Inhaler*) 2 puff INH QID PRN SHORTNESS OF BREATH Folic Acid (Folvite Tab*) 1 mg PO DAILY BRENNAN Sodium Chloride (Ns 0.9% 1000 Ml*) 1,000 mls @ 125 mls/hr IV PER RATE BRENNAN Lorazepam (Ativan Inj*) 0 - 6 mg IV PUSH .PER [facility] PROTOCOL BRENNAN; Protocol Multivitamins/Minerals (Theragran/Minerals Tab*) 1 tab PO DAILY BRENNAN Nicotine (Nicotine Inhaler*) 10 mg INH Q2H PRN CRAVING Thiamine HCl (Vitamin B-1 Tab*) 100 mg PO DAILY [facility] Vital Signs - 8 hr 02/15/18 02/15/18 02/15/18 08:52 10:13 10:45 Temperature 97.9 F Pulse Rate 87 Respiratory 24 20 22 Rate Blood Pressure 131/73 (mmHg) O2 Sat by Pulse 93 Oximetry 02/15/18 02/15/18 02/15/18 11:30 11:45 14:59 Temperature 100.2 F 100.4 F Pulse Rate 86 86 Respiratory 22 22 20 Rate Blood Pressure 145/86 134/79 (mmHg) O2 Sat by Pulse 95 93 Oximetry Oxygen Devices in Use Now: None Appearance: Young adult male laying in bed in NAD Ears/Nose/Mouth/Throat: Mucous Membranes Moist Neck: NL Appearance and Movements; NL JVP, Trachea Midline Respiratory: Symmetrical Chest Expansion and Respiratory Effort, Clear to Auscultation Cardiovascular: NL Sounds; No Murmurs; No JVD, RRR Abdominal: NL Sounds; No Tenderness; No Distention Extremities: No Edema Skin: No Rash or Ulcers Neurological: - - Sedated Lines/Tubes/Other Access: Clean, Dry and Intact Peripheral IV Nutrition: Taking PO's Result Diagrams: 02/15/18 05:22 02/15/18 05:22 Assess/Plan/Problems-Billing Assessment: Mr. Hendrix is a 32 yo with PMH of depression and ETOH abuse who presented to the ED after expressing suicidal ideations and attempting to overdose on sertraline and bupropion. - Patient Problems (1) Overdose Current Visit: Yes Status: Acute Code(s): T50.901A - POISONING BY UNSP DRUG/ MEDS/BIOL SUBST, ACCIDENTAL, INIT SNOMED Code(s): 83785662 Comment: - Reportedly took sertraline 100mg x45 and bupropion 100mg x30 - Per posion control, need to monitor for 24 hours for QTc prolongation, wide QRS, tachycardia, seizures, and hypotension; 24 hours will be up at approx 1900 - Serial EKGs all show NSR or ST, QTc up to 460 - Appreciate psych consult - Continue to monitor on tele - 1:1 at bedside (2) EtOH dependence Current Visit: Yes Status: Acute Code(s): F10.20 - ALCOHOL DEPENDENCE, UNCOMPLICATED SNOMED Code(s): 70114492 Comment: - Per mother, approx 15 cans of beer per day - WAM protocol - Continue multivitamin, folic acid, thiamine (3) Depression Current Visit: Yes Status: Acute Code(s): F32.9 - MAJOR DEPRESSIVE DISORDER , SINGLE EPISODE, UNSPECIFIED SNOMED Code(s): 98231354 Comment: - Hold bupropion and sertraline - 1:1 pending psych eval (4) DVT prophylaxis Current Visit: Yes Status: Acute Code(s): ZHI6401 - SNOMED Code(s): 965760916 Comment: - Lovenox (5) Full code status Current Visit: Yes Status: Acute Code(s): Z78.9 - OTHER SPECIFIED HEALTH STATUS SNOMED Code(s): 684704607 Status and Disposition: Observation for continued need for overdose monitoring and WAM. Pending psych consult, but likely d/c to [facility].
[2018-02-15] MEDS: Enoxaparin(*) 40 MG/0.4 ML SYR SUBCUT SCH (18:09)
[2018-02-15 20:35] LABS: Urine Appearance Clear; Urine Blood Negative (Negative); Urine Color Yellow; Urine Ketones Negative (Negative); Urine Protein Negative (Negative); Urine Specific Gravity 1.012 (1.010-1.030); Urine Urobilinogen Negative (Negative)
[2018-02-16] MEDS: NS 0.9% 1000 ML* 1,000 ML IV SCH (05:41)
[2018-02-16] MEDS: Thiamine TAB* 100 MG TAB PO SCH (09:01)
[2018-02-16] MEDS: Multivitamins/Minerals TAB PO SCH (09:01)
[2018-02-16] MEDS: Folic Acid TAB* 1 MG PO SCH (09:01)
[2018-02-16] MEDS ORDERED: Magnesium Sulfate IV* 3 GM in NS 0.9% 100 ML* 100 ML IVPB ONE (13:00)
--- NOTE | 2018-02-16 15:09 | PN ---
Subjective Date of Service: 02/16/18 Interval History: Mr. Hendrix is awake and alert today and able to participate in the exam. He reports feeling well this morning and would like to go home. He is not forthcoming with information about the overdose or his alcohol use. He reports that he will not misuse his antidepressants again. He was not able to quantify his alcohol use. Nursing reported that the patient's mother is scared of him and does not want him to return back to her home. When I spoke with the patient about this, he was not concerned and felt that he would be able to return to her home. He does not have any other place to live. He does not want to go to [facility] as he does not feel he needs it. He denies any physical complaints including CP, SOB, N/V/D, dizziness. Family History: Unchanged from Admission Social History: Unchanged from Admission Past Medical History: Unchanged from Admission Objective Active Medications: Albuterol (Ventolin Hfa Inhaler*) 2 puff INH QID PRN SHORTNESS OF BREATH Enoxaparin Sodium (Lovenox(*)) 40 mg SUBCUT Q24H BRENNAN Folic Acid (Folvite Tab*) 1 mg PO DAILY BRENNAN Lorazepam (Ativan Inj*) 0 - [address] .PER [facility] PROTOCOL BRENNAN; Protocol Multivitamins/Minerals (Theragran/Minerals Tab*) 1 tab PO DAILY BRENNAN Nicotine (Nicotine Inhaler*) 10 mg INH Q2H PRN CRAVING Thiamine HCl (Vitamin B-1 Tab*) 100 mg PO DAILY [facility] Vital Signs - 8 hr 02/16/18 02/16/18 02/16/18 07:17 09:32 11:13 Temperature 97.2 F 98.1 F 98.1 F Pulse Rate 58 76 100 Respiratory 24 16 20 Rate Blood Pressure 123/71 105/55 129/79 (mmHg) O2 Sat by Pulse 98 97 97 Oximetry 02/16/18 13:41 Temperature 98.0 F Pulse Rate 63 Respiratory 20 Rate Blood Pressure 150/94 (mmHg) O2 Sat by Pulse 98 Oximetry Oxygen Devices in Use Now: None Appearance: Young adult male laying in bed in NAD Eyes: No Scleral Icterus Ears/Nose/Mouth/Throat: Mucous Membranes Moist Neck: NL Appearance and Movements; NL JVP, Trachea Midline Respiratory: Symmetrical Chest Expansion and Respiratory Effort, Clear to Auscultation Cardiovascular: NL Sounds; No Murmurs; No JVD, RRR Abdominal: NL Sounds; No Tenderness; No Distention Extremities: No Edema Skin: No Rash or Ulcers Neurological: Alert and Oriented x 3, NL Sensation, NL Gait, - - Horizontal nystagmus Lines/Tubes/Other Access: Clean, Dry and Intact Peripheral IV Nutrition: Taking PO's Result Diagrams: 02/15/18 05:22 02/15/18 05:22 Assess/Plan/Problems-Billing Assessment: Mr. Hendrix is a 32 yo with PMH of depression and ETOH abuse who presented to the ED after expressing suicidal ideations and attempting to overdose on sertraline and bupropion. - Patient Problems (1) Overdose Current Visit: Yes Status: Acute Code(s): T50.901A - POISONING BY UNSP DRUG/ MEDS/BIOL SUBST, ACCIDENTAL, INIT SNOMED Code(s): 60997643 Comment: - Reportedly took sertraline 100mg x45 and bupropion 100mg x30 - Now cleared by posion control - Continue to monitor on tele - Appreciate psych consult - 1:1 at bedside (2) EtOH dependence Current Visit: Yes Status: Acute Code(s): F10.20 - ALCOHOL DEPENDENCE, UNCOMPLICATED SNOMED Code(s): 73638875 Comment: - Per mother, approx 15 cans of beer per day - WAM protocol - Spoke with neuro regarding nystagmus; recommendation is brain MRI and neuro consultation for any abnormal results - Continue multivitamin, folic acid, thiamine (3) Depression Current Visit: Yes Status: Acute Code(s): F32.9 - MAJOR DEPRESSIVE DISORDER , SINGLE EPISODE, UNSPECIFIED SNOMED Code(s): 17980126 Comment: - Hold bupropion and sertraline - 1:1 pending psych eval (4) DVT prophylaxis Current Visit: Yes Status: Acute Code(s): ZET7869 - SNOMED Code(s): 751462353 Comment: - Lovenox (5) Full code status Current Visit: Yes Status: Acute Code(s): Z78.9 - OTHER SPECIFIED HEALTH STATUS SNOMED Code(s): 358448910 Status and Disposition: Inpatient for continued need for overdose monitoring and WAM. Pending psych consult, but likely d/c to [facility].
[2018-02-16] MEDS: Enoxaparin(*) 40 MG/0.4 ML SYR SUBCUT SCH (18:02)
[2018-02-16] MEDS: Nicotine Inhaler* 10 MG AMP INH PRN (18:56)
--- NOTE | 2018-02-16 21:22 | HP ---
HISTORY AND PHYSICAL: DATE OF ADMISSION: 02/14/18 IDENTIFYING DATA: Oscar is a 32-year-old employed male. No prior history of psychiatric hospitalization or treatment in appropriate setting was admitted to medical floor following an overdose on unknown numbers of his prescription medications including Wellbutrin and trazodone. CHIEF COMPLAINT: "I didn't want to live any longer, because my has been cheating on me." HISTORY OF PRESENT ILLNESS: Oscar was examined on bedside on the medical floor. From the very beginning, he was not very happy to see a psychiatrist and tried to minimize his problems saying that he never wanted to kill himself. It is just he got upset and wanted to forget about his pain. Although his primary care physician started him on Wellbutrin and trazodone 3 months ago, he does not acknowledge that, that was because of his depression and he would not agree that he was ever depressed. Says he just took the pills because his doctor prescribed him to make him feel good. He kept denying any mental health problems ever and then at one point when he realized that he would not be sent home today because of the suicide attempt requiring medical attention, he became extremely upset and started using obscene language and calling this race and sports book writer all kinds of names. According to the nursing staff on the unit, he scored on WAM, yesterday, received lorazepam and scored once today also this morning and received lorazepam; otherwise, he has been holding it together. He is still on IV medications. Once again, his stressors appeared to be broken relationship with his girlfriend/ and his inability to see his 3-year-old son with his girlfriend. There is an order of protection against him; however, he would not explain why there was an order of protection. All he says that is this was all her problem, because she was cheating on him. He appears to be very angry and tense at the time of evaluation. PAST PSYCHIATRIC HISTORY: Unremarkable. PAST MEDICAL HISTORY: Other than overdose on prescription medications, he denies any acute or chronic physical health problem. ALLERGIES: No known drug allergies. DRUG AND ALCOHOL HISTORY: He reports of drinking daily somewhere between 15 to 25 cans of beers. Says, he still can function normal and does not acknowledge that to be a problem and declined any kind of help evidently since his admission. He was on WAM protocol and scored to get lorazepam. He also smokes marijuana once every morning. He says it is only one bowl and sometimes more here and there. Denies using any other drugs. FAMILY HISTORY: He says he has 13 siblings. He is not in touch with anyone and is not aware of anyone having mental health problems; however, acknowledges that his mother and grandmother are depressed. SOCIAL AND PERSONAL HISTORY: Oscar graduated from high school and went to do odd jobs. He is either or in a relationship with this woman for years and produced 1 kid 3 years ago. Denies any legal problem. He works as a daily laborer pipelines and reports that he has now financial support and has an apartment. PHYSICAL EXAMINATION Physical exam was not offered. He does not appear to be in any physical distress at the time of evaluation on bedside. I have reviewed the exams done by the Hospitalists, which were unremarkable other than him scoring some points on WAM protocol. VITAL SIGNS: Within normal limits. MENTAL STATUS EXAMINATION: Healthy-appearing, average height, male, wearing hospital gown and with IV on board. He is alert and oriented to time, place, and person. Makes poor eye contact. Very tense with somewhat pressured speech and easily gets upset with probing questions and uses obscene languages frequently. He denied any delusions, hallucinations, suicidal or homicidal ideation. His intelligence appears to be average as evidenced by his vocabulary and fund of knowledge. Memory functions were intact in all spheres. His insight and judgment were totally impaired. He continues to be a high risk for harm to self and others. LABORATORY DATA: Unremarkable as well. SUMMARY: This 32-year-old male with known history of severe alcohol use disorder and cannabis use disorder attempted to commit suicide by overdosing on his prescription pills requiring medical attention on medical floor. He reported of depression off and on for the last 3 years for which his primary care physician started him on Wellbutrin and trazodone. MENTAL HEALTH DIAGNOSES: 1. Depressive disorder, not otherwise specified, rule out major depressive disorder. 2. Alcohol use disorder. 3. Cannabis use disorder. PHYSICAL HEALTH DIAGNOSIS: Status post overdose on prescription pills. TREATMENT RECOMMENDATIONS: Oscar, after being medically cleared, will be transferred to behavioral science unit on involuntary status. His code status will remain full. We will continue him on WAM protocol to avoid any kind of serious withdrawal from alcohol. Supportive milieu, individual, and group therapy will be initiated. For now, I will defer any psychopharmacological treatment to his assigned psychiatrist on the unit. [id number]/[facility] #: [id number] REY
[2018-02-17] MEDS: Nicotine Inhaler* 10 MG AMP INH PRN ×4 (00:58→12:34)
[2018-02-17 07:01] LABS: EGFR Non-African American 107.3 (>60)
[2018-02-17] MEDS ORDERED: Magnesium Sulfate 2 GM IV* 2 GM/50 ML BAG IVPB ONE (07:06)
[2018-02-17] MEDS: Folic Acid TAB* 1 MG PO SCH (07:57)
[2018-02-17] MEDS: Multivitamins/Minerals TAB PO SCH (07:58)
[2018-02-17] MEDS: Thiamine TAB* 100 MG TAB PO SCH (07:58)
[2018-02-17] MEDS ORDERED: Magnesium Oxide TAB* 400 MG PO SCH (09:00)
[2018-02-17 13:30] VITALS: BP 162/90
--- NOTE | 2018-02-17 13:36 | PN ---
Subjective - Subjective Date of Service: 02/17/18 Service Type: 17526 Hosp care 25 min moderate complexity Subjective: Patient is pleasant and cooperative. He states "I messed up, I learned my lesson and won't do that again" in regards to suicide attempt. Patient states his primary stressor is the conflicting relationship with the mother of his 3yo daughter. He states he has started making plans to relocate to [place] in two weeks to live with friends there. Software Engineer Sales spoke with his mother, Yasmin Hendrix, who verifies Simone can return to her home until he moves. She states she has told him that she will call the police if he engages in alcohol or marijuana use. Patient declines offer of voluntary admission to BSU. Objective - Appearance Appearance: Well Developed/Nourished Dysmorphic Features: No Hygiene: Normal Grooming: Well Kept - Behavior Psychomotor Activities: Normal Exhibits Abnormal Movement: No - Attitude and Relatedness Attitude and Relatedness: Cooperative Eye Contact: Good - Speech Quality: Unpressured Latencies: Normal Quantity: Appropriate - Mood Patient's Decription of Mood: "Good" - Affect Observed Affect: Good Affect Consistent with: Euthymia - Thought Process Patient's Thought Process: Coherent, Goal Directed Thought Content: No Passive Wish, No Suicidal Planning, No Homicidal Ideation, No Paranoid Ideation - Sensorium Experiencing Hallucinations: No, Sensorium is Clear Type of Hallucinations: Visual: No, Auditory: No, Command: No - Level of Consciousness Level of Consciousness: Alert Orientation: Yes Intact, Yes Orientated to Time, Yes Orientated to Place, Yes Orientated to Person - Impulse Control Impulse Control: Intact - Insight and Judgement Insight and Judgement: Fair Assessment - Assessment Clinical Impression: 32yo wm, domiciled, unemployed who presented to ED on 02/14 s/p overdose on prescribed buproprion and sertraline. He has been medically stabilized and denies SI/HI/ or passive wish. He is future oriented and in behavioral control. Patient declines offer of admission to BSU. Plan - Plan Treatment Plan: Name: SIMONE HENDRIX Birthdate: 1985 [id number] continue sertraline 50mg daily. DC buproprion. discharge per primary team. Continued Medication Management: Different Medication Medications: Current Medications Albuterol (Ventolin Hfa Inhaler*) 2 puff INH QID PRN PRN Reason: SHORTNESS OF BREATH Enoxaparin Sodium (Lovenox(*)) 40 mg SUBCUT Q24H [facility] Last Admin: 02/16/18 18:02 Dose: Not Given Folic Acid (Folvite Tab*) 1 mg PO DAILY [facility] Last Admin: 02/17/18 07:57 Dose: 1 mg Lorazepam (Ativan Inj*) 0 - 6 mg IV PUSH .PER [facility] PROTOCOL [facility]; Protocol Last Admin: 02/15/18 10:13 Dose: 2 mg Magnesium Oxide (Magox 400 Tab*) 400 mg PO DAILY [facility] Last Admin: 02/17/18 07:57 Dose: 400 mg Multivitamins/Minerals (Theragran/Minerals Tab*) 1 tab PO DAILY [facility] Last Admin: 02/17/18 07:58 Dose: 1 tab Nicotine (Nicotine Inhaler*) 10 mg INH Q2H PRN PRN Reason: CRAVING Last Admin: 02/17/18 12:34 Dose: 10 mg Thiamine HCl (Vitamin B-1 Tab*) 100 mg PO DAILY [facility] Last Admin: 02/17/18 07:58 Dose: 100 mg - Discharge Plan Discharge Plan: Outpatient Follow Up
--- NOTE | 2018-02-18 17:29 | DS ---
CC: Dr. Jeff Canales; Teresa Lott NP; Dr. Ortega Gonzalez * DISCHARGE SUMMARY: DATE OF ADMISSION: 02/14/18 DATE OF DISCHARGE: 02/17/18 PRIMARY CARE PROVIDER: Dr. Jeff Canales ATTENDING PHYSICIAN: Dr. Deidre Rodriguez * (dictated by Sydney Benitez NP) PRIMARY DIAGNOSES: 1. Overdose sertraline and bupropion. 2. Alcohol abuse. 3. Depression. 4. Empty sella. SECONDARY DIAGNOSIS: None. STUDIES WHILE IN THE HOSPITAL: 1. EKG on 02/14/18 shows normal sinus rhythm with a rate of 75 and QTc of 418. 2. EKG on 02/15/18 shows sinus tachycardia with a rate of 108 and QTc of 460. 3. EKG on 02/15/18 shows normal sinus rhythm with a rate of 90 and QTc of 441. 4. EKG on 02/15/18 shows normal sinus rhythm with a rate of 86 and QTc of 433. 5. Brain MRI on 02/17/18 reads as empty sella. HISTORY OF PRESENT ILLNESS AND HOSPITAL COURSE: Mr. Hendrix is a 32-year-old male with past medical history of depression and alcohol abuse, who presented to the emergency room on 02/14/18 after attempting to overdose on antidepressants. Please see the history and physical by Dr. Calvillo for complete summary of the events leading up to this hospitalization. In short, the patient recently from his who took out an order of protection against him. This led to him to take 45 sertraline 100 mg and 30 bupropion 100 mg. In the emergency room, the patient was agitated and not very cooperative with exam though denied any suicidal ideations or attempts. Poison Control was contacted and the recommendations were monitoring for 24 hours, monitoring should include EKGs to assess QRS and QTc and monitoring for tremor, tachycardia , seizures, and hypotension. He was admitted by the Hospitalist service. The patient was monitored on telemetry and had a one-to-one at the bedside. EKGs were normal and showed no evidence of QTc prolongation or widened QRS complexes. Psychiatry consulted on the patient on 02/16/18, at which point they recommended that the patient be transferred to the Behavioral Services Unit on involuntary status once medically cleared. At that point, the patient was still withdrawing from alcohol on the [facility] protocol. As of the morning of discharge, the patient is no longer scoring on WAM protocol. He did have horizontal nystagmus on 02/16/18 and so a brain MRI was ordered per Neurology's recommendation. The brain MRI was completed this morning and showed empty sella. The patient was noted to have a free T4 of 1.16 and a cortisol of 7.29 and this was not deemed to be an issue at this time, rather an incidental finding that the patient will need to follow up on. The patient was medically cleared after MRI results were obtained. He was again seen by Psychiatry who at that point felt as though the patient no longer required an admission to the Behavioral Services Unit and they advised that the patient was safe to be discharged home with his mother. They recommended discontinuing Wellbutrin and they prescribed a lower dose sertraline for the patient to start. The patient reports feeling well today and he is anxious to return home. He denies any suicidal ideations on my exam and is no longer displaying any nystagmus or withdrawal symptoms. Mr. Hendrix is stable for discharge today. Vital signs are as follows: Temp 98.1, heart rate 63, respiratory rate 16, oxygen saturation 98% on room air, blood pressure 123/73. DISCHARGE MEDICATIONS: New home medications. 1. Folic acid 1 mg p.o. daily. 2. Magnesium oxide 400 mg p.o. daily. 3. Multivitamin 1 tab p.o. daily. 4. Thiamine 100 mg p.o. daily. Changed home medications: 1. Sertraline 50 mg p.o. daily (previously was 100 mg p.o. daily). Continued home medications: 1. Albuterol MDI 2 puffs q.i.d. p.r.n. shortness of breath. Discontinue home medications: 1. Bupropion. DISCHARGE PLAN: Mr. Hendrix will be discharged to home. Activity will be as tolerated. Diet will be regular as tolerated. Medications as noted above. He should stop taking and discard any remaining bupropion. He has been prescribed a lower dose of Zoloft by Psychiatry as noted above and it is recommended that he take multivitamin, thiamine, and folic acid due to his alcohol abuse. He has been advised that he should abstain from alcohol. He should follow up with his primary care provider in 4 to 7 days. Additionally, he will need to follow up with Dr. Chapito Barrientos of Endocrinology for further evaluation of empty sella. The patient has been informed of the MRI results. The patient has been advised to return to the emergency room or nearest hospital for any worsening of symptoms, shortness of breath, lightheadedness, dizziness, chest discomfort, high fevers, chills, night sweats, loss of consciousness, or any other worrisome signs or symptoms. This is a summarized report of a complex medical history and hospital stay. For further details, please see the entire medical record. TIME SPENT: Approximately 45 minutes was spent on this discharge, greater than half of that time spent [id number] with the patient discussing discharge plans and instructions. SYDNEY BENITEZ NP [id number]/[facility] #: [id number] REY
== END 2018-02-17 15:10 | disposition home or self-care (01) | DRG 918 ==
LOC: ED 17:49 → MEDTELE 19:48 → OBSVTOIN 02-16 15:19 → INTOOBSV 02-17 07:34 → UNDODISIN 02-17 15:10
PROVIDERS: ADMIT Internal Medicine; ATTEND Internal Medicine
DX: T43.222A Poisoning by selective serotonin reuptake inhibitors, intentional self-harm, initial encounter (principal); T43.292A Poisoning by other antidepressants, intentional self-harm, initial encounter; F10.20 Alcohol dependence, uncomplicated; F32.9 Major depressive disorder, single episode, unspecified; F17.210 Nicotine dependence, cigarettes, uncomplicated; F12.90 Cannabis use, unspecified, uncomplicated; R00.0 Tachycardia, unspecified; D72.829 Elevated white blood cell count, unspecified; H55.09 Other forms of nystagmus; Y90.9 Presence of alcohol in blood, level not specified; Y92.009 Unspecified place in unspecified non-institutional (private) residence as the place of occurrence of the external cause; Z81.8 Family history of other mental and behavioral disorders; Z56.0 Unemployment, unspecified
CPT/HCPCS: 36415; 70551; 80048; 80053; 80061; 80307; 80320; 80329; 81003; 82533; 83605; 83735; 84100; 84439; 84443; 85025; 93005; 96361; 96374; 99285; A9270-GY; G0378; G0480; J1630; J1650; J2060; J3475